=== PATIENT | male | born 1955 | race Caucasian/White ===

== ENCOUNTER 2019-10-20 06:59 | Day surgery (SDC) | payer BC ==
[2019-10-19 12:48] VITALS: BMI 23.0
[2019-10-20] MEDS ORDERED: DEXAMETHASONE SOD PHOSPHATE/PF 10 MG/ML SDV ONE (07:49)
[2019-10-20] MEDS ORDERED: ROPIVACAINE HCL 0.5% 30ML VIAL ONE (07:49)
[2019-10-20] MEDS ORDERED: MIDAZOLAM HCL 2 MG/2 ML SINGLE DOSE VIAL ONE ×2 (08:41)
--- NOTE | 2019-10-20 09:35 | HP ---
Satellite H - Chief Complaint Chief Complaint: right shoulder pain - Past Medical History Allergies/Adverse Reactions: Allergies Allergy/AdvReac Type Severity Reaction Status Date / Time doxycycline Allergy Severe Vomiting Verified 03/28/15 20:07 - Current Medications Current Medications: Home Medications Medication Instructions Recorded Hydrocodone/Acetaminophen 1 each PO Q6H #30 tablet MDD 4 10/20/19 [Hydrocodone-Acetamin 5-325 mg] Satellite Physical Exam - Physical Examination Vital Signs: Vital Signs Period Temp Pulse Resp BP Sys/Reddy Pulse Ox Last 24 Hr 98.1 F-98.1 F 45-45 20-20 132-132/68-68 97 General Appearance: Well Nourished, Well Developed, Alert & Oriented x3 ENT: Clear Lung: Normal air movement Extremities: Other (right shoulder- + ttp, decr rom, + empty can, + neer, + orantes, nvi, MRI + rct) Neurological: Intact, Alert, Oriented Satellite Impression/Plan - Impression/Plan Impression: right shoulder rct Operative Procedure: right shoulder arthroscopy with ABBI MERA Date to be Performed: 10/20/19
[2019-10-20] MEDS ORDERED: oxyCODONE HCL 5 MG TABLET PO PRN (10:10)
[2019-10-20] MEDS ORDERED: ONDANSETRON 4 MG/2 ML VIAL IVPUSH PRN (10:10)
[2019-10-20] MEDS ORDERED: LACTATED RINGERS SOLUTION 1,000 ML IV SCH (10:15)
[2019-10-20] MEDS ORDERED: PROPOFOL 20 ML ONE ×3 (10:25→11:11)
[2019-10-20] MEDS ORDERED: ceFAZolin SODIUM 1 GM VIAL ONE (10:26)
[2019-10-20] MEDS ORDERED: LIDOCAINE HCL/PF 2% SDV 5ML VIAL ONE (10:26)
[2019-10-20] MEDS ORDERED: KETOROLAC TROMETHAMINE 30 MG/1 ML VIAL ONE (10:26)
[2019-10-20] MEDS ORDERED: DEXAMETHASONE SOD PHOSPHATE 4 MG/1 ML VIAL ONE (10:26)
[2019-10-20] MEDS ORDERED: ceFAZolin SODIUM 1 GM VIAL IVPB ONE (11:15)
--- NOTE | 2019-10-20 12:31 | OP ---
Operative Note - Note: Operative Date: 10/20/19 ([facility]) Pre-Operative Diagnosis: right shoulder rct, djd, impingement Operation: right shoulder arthroscopy with SAD, DCE Post-Operative Diagnosis: Same as Pre-op Surgeon: Wali Oneal Metropolitan Editor: Yinka Evangelista Anesthesiologist/CASE MANAGEMENT RN: Yuriy Santana Anesthesia: General, Local Specimens Removed: shavings Estimated Blood Loss (mls): 5
[2019-10-20 13:56] VITALS: TEMP 97.8
[2019-10-20 14:35] VITALS: BP 143/74; PULSE 68
--- NOTE | 2019-10-21 07:57 | OP ---
DATE OF OPERATION: 10/20/2019 PREOPERATIVE DIAGNOSES: Right shoulder impingement syndrome, glenohumeral joint osteoarthritis, acromioclavicular joint arthritis, and partial rotator cuff tear. POSTOPERATIVE DIAGNOSES: Right shoulder impingement syndrome, glenohumeral joint osteoarthritis, acromioclavicular joint arthritis, and partial rotator cuff tear, as well as adhesive capsulitis. PROCEDURE: Right shoulder arthroscopy, subacromial decompression, distal clavicle excision, manipulation under anesthesia, and partial synovectomy. SURGEON: Wali Oneal MD NON DESTRUCTIVE TESTING TECHNICIAN: ABIMBOLA Bailey ANESTHESIOLOGIST: Yuriy Santana CRNA ANESTHESIA: Right interscalene block with LMA anesthesia. DRAINS: None. COMPLICATIONS: None. SPECIMEN: Arthroscopic shavings. BLOOD GIVEN: None. FLUID REPLACEMENT: Plasma-Lyte 1000 mL. This patient is a 63-year-old male with a preoperative diagnosis of significant pain and dysfunction of his right shoulder, as well as impingement syndrome and glenohumeral osteoarthritis. After understanding the potential risks, complications, alternatives, and benefits of surgery versus nonsurgical treatment, the patient elected to undergo this procedure. He understands that he will not get complete relief of his symptoms and he will continue to have pain at least secondary to the glenohumeral osteoarthritis. The patient was brought to the operating room. Peripheral IV placed. IV sedation given. A right interscalene block was performed. LMA anesthesia was induced. He was placed into the beach chair position with ample padding throughout. I put the arm through all planes including forward flexion, abduction, internal and external rotation. I was able to feel some soft tissue stretching, especially in full forward flexion and abduction. The right upper extremity was prepped and draped in usual sterile fashion. The bony landmarks were marked out with a marking pen. A posterior portal was established. A diagnostic glenohumeral arthroscopy was performed. The patient had significant widespread grade 4 osteoarthritis of both the glenoid and humeral head. They both were bare, had no cartilage whatsoever. Photographs were taken. The labrum was very frayed and torn. The biceps tendon and the undersurface of the rotator cuff were also very frayed and torn. There was a tremendous amount of intraarticular synovitis, and therefore, an anterior portal was established. First with a number-15 scalpel blade, then a green cannula was introduced into the glenohumeral joint, then an ArthroCare wand used to do a partial synovectomy. Once this was done, I could see much better, and with this improved visualization, I could see that the biceps tendon had significant longitudinal and transverse tears. This was debrided first with the ArthroCare wand and then a straight shaver. The labrum was debrided. The undersurface of the rotator cuff was debrided. The patient had a significant undersurface rotator cuff tear. Additional debris was removed from the joint. Once the undersurface of the rotator cuff was debrided, the arm was put through a range of motion. It looked like the top surface was intact. The area was copiously irrigated and washed out. All excess saline removed. Next, our attention turned to the subacromial space. Lateral portal was established under direct visualization using a spinal needle, number 15 scalpel blade, and then, a green cannula was introduced into the joint. Patient had a tremendous amount of inflammatory bursitis and inflammation. An extensive soft tissue debridement was done with the ArthroCare wand and then a straight shaver. A significant bursectomy was performed in the subacromial and subdeltoid area. This revealed the top surface of the rotator cuff to be intact. I put the arm through a full range of motion. I did not see any continuation of the tear from the articular side to the bursal side. The area was debrided, cauterized, and would be left alone. The extensive soft tissue sharp should be excisional/bursectomy revealed a very large subacromial and very large distal clavicular bony spur. These both were taken down with a 5.5-mm oval emily, then fine-tuned in reverse, and then with a straight shaver. The area was copiously irrigated and washed out. All excess saline and debris removed. Photographs were taken of the subacromial decompression. The arm was put through a full range of motion under direct visualization, and I saw no points of impingement. The area was searched again for a full-thickness rotator cuff tear. I did not see any. The area was copiously irrigated and washed out and all instrumentation removed. The arthroscopy portals were closed with 3-0 nylon sutures, washed, dried, and covered with Aquacel dressing, put into a sling. Total operative time was about 1 hour. There were no complications during the case. The patient tolerated the procedure quite well and was brought to the ambulatory recovery room in stable condition. Aroldo [id number]
--- NOTE | 2019-10-21 16:43 | PATH ---
Surgical Pathology Report Patient Name: MARCELINO MEIER Med. Rec. #: [id number] /Age/Gender: 1955 (Age: 63) / M Account: [id number] Location: [facility] SURGICAL Taken: 10/20/2019 Received: 10/20/2019 Reported: 10/21/2019 Physicians: Wali Oneal M.D. Specimen(s) Received RIGHT SHOULDER SHAVINGS Clinical History Impingement syndrome of right shoulder Final Diagnosis RIGHT SHOULDER SHAVINGS: FRAGMENTS OF BONE, CARTILAGE, SKELETAL MUSCLE AND SYNOVIAL TISSUE WITH FOCAL DEGENERATIVE CHANGE. Electronically Signed Shaye Reddy M.D. Gross Description Received in formalin, labeled "right shoulder shavings," is a 6.0 x 5.0 x 0.4 cm. aggregate of ahn-yellow soft tissue fragments. A livestock sales representative portion is submitted in one cassette. /10/20/201910/20/2019
== END 2019-10-20 15:20 | disposition home or self-care (01) ==
LOC: JASU-SURG 06:59
PROVIDERS: ATTEND Orthopaedic Surgery
PROC: 0PB94ZZ Excision of Right Clavicle, Percutaneous Endoscopic Approach (ICD-10-PCS; 2019-10-20)
PROC: 0RNJ4ZZ Release Right Shoulder Joint, Percutaneous Endoscopic Approach (ICD-10-PCS; principal; 2019-10-20 09:00)
DX: M75.41 Impingement syndrome of right shoulder (principal); M19.011 Primary osteoarthritis, right shoulder; M75.01 Adhesive capsulitis of right shoulder; M75.101 Unspecified rotator cuff tear or rupture of right shoulder, not specified as traumatic
CPT/HCPCS: 94760

== ENCOUNTER 2021-12-19 04:22 | Day surgery (SDC) | payer BC ==
[2021-12-17 17:36] VITALS: BMI 24.2
[2021-12-19] MEDS ORDERED: LIDOCAINE HCL 1%, 10 MG/ML (20ML VIAL) ONE (07:16)
[2021-12-19] MEDS ORDERED: BUPIVACAINE HCL/PF 0.5% (5MG/ML) 10 ML VIAL ONE (07:16)
[2021-12-19] MEDS ORDERED: DEXAMETHASONE SOD PHOSPHATE 4 MG/1 ML VIAL ONE (07:20)
[2021-12-19] MEDS ORDERED: MIDAZOLAM HCL 2 MG/2 ML SINGLE DOSE VIAL ONE (07:20)
[2021-12-19] MEDS ORDERED: KETOROLAC TROMETHAMINE 30 MG/1 ML VIAL ONE (07:20)
[2021-12-19] MEDS ORDERED: LIDOCAINE HCL 2% 100 MG/5 ML DISP.SYRIN ONE (07:20)
[2021-12-19] MEDS ORDERED: ePHEDrine SULFATE 50 MG/1 ML AMPULE ONE (07:20)
[2021-12-19] MEDS ORDERED: ONDANSETRON 4 MG/2 ML VIAL ONE (07:20)
[2021-12-19] MEDS ORDERED: PROPOFOL 20 ML ONE ×2 (07:20→08:19)
[2021-12-19] MEDS ORDERED: PHENYLEPHRINE HCL 10 MG/1 ML SINGLE DOSE VIAL ONE (07:20)
[2021-12-19] MEDS ORDERED: ceFAZolin SODIUM 1 GM VIAL IVPB ONE (08:10)
[2021-12-19] MEDS ORDERED: ceFAZolin SODIUM 1 GM VIAL ONE ×2 (08:11)
[2021-12-19] MEDS ORDERED: BUPIVACAINE HCL/PF 0.5% (5 MG/ML) 30 ML VIAL IJ ONE ×2 (08:20)
[2021-12-19] MEDS ORDERED: LIDOCAINE HCL 1%, 10 MG/ML (50 mL VIAL) INF ONE ×2 (08:20)
[2021-12-19] MEDS ORDERED: HYDROmorphone HCl 2 MG/ML VIAL IVPUSH PRN (08:49)
[2021-12-19] MEDS ORDERED: LACTATED RINGERS SOLUTION 1,000 ML IV SCH (09:00)
[2021-12-19 10:39] VITALS: BP 116/74; PULSE 51; TEMP 97.7
== END 2021-12-19 11:00 | disposition home or self-care (01) ==
LOC: JASU-SURG 04:22
PROVIDERS: ATTEND Orthopaedic Surgery
PROC: 01N50ZZ Release Median Nerve, Open Approach (ICD-10-PCS; principal; 2021-12-19 08:00)
DX: G56.02 Carpal tunnel syndrome, left upper limb (principal); M65.9 Synovitis and tenosynovitis, unspecified
CPT/HCPCS: 88304-TC; 94760

== ENCOUNTER → 2022-02-19 | Day surgery (SDC) | payer BC ==
[~2022-02-19] MED LIST: SIMETHICONE 40 MG/0.6 ML BOTTLE ONE
[2022-02-19 12:21] VITALS: TEMP 97.5
[2022-02-19 13:14] VITALS: BP 127/71; PULSE 64
== END | disposition home or self-care (01) ==
LOC: JASU-ENDO 04:54
PROVIDERS: ATTEND Internal Medicine Gastroenterology
PROC: 0DBL8ZX Excision of Transverse Colon, Via Natural or Artificial Opening Endoscopic, Diagnostic (ICD-10-PCS; 2022-02-19)
PROC: 0DBF8ZX Excision of Right Large Intestine, Via Natural or Artificial Opening Endoscopic, Diagnostic (ICD-10-PCS; 2022-02-19)
PROC: 0DBP8ZX Excision of Rectum, Via Natural or Artificial Opening Endoscopic, Diagnostic (ICD-10-PCS; 2022-02-19)
PROC: 0DBH8ZX Excision of Cecum, Via Natural or Artificial Opening Endoscopic, Diagnostic (ICD-10-PCS; principal; 2022-02-19 10:30)
DX: K57.30 Diverticulosis of large intestine without perforation or abscess without bleeding (principal); K62.1 Rectal polyp; D12.0 Benign neoplasm of cecum; D12.3 Benign neoplasm of transverse colon; K64.8 Other hemorrhoids
CPT/HCPCS: 88305-TC

== ENCOUNTER 2022-04-10 16:45 | Emergency (ER) | payer BC ==
[2022-04-10] MEDS ORDERED: FLUORESCEIN NA 1 EA STRIP ONE (16:50)
[2022-04-10] MEDS ORDERED: TETRACAINE 0.5% OPHTH SOLN 2 ML BOTTLE ONE (16:50)
[2022-04-10] MEDS ORDERED: DIPHTH,PERTUSS(ACELL),TET 0.5 ML DISP.SYRIN IM ONE ×2 (17:07→17:15)
[2022-04-10 17:14] VITALS: BP 123/74; PULSE 60; RESP 20; TEMP 98; BMI 24.2
== END 2022-04-10 17:51 | disposition home or self-care (01) ==
LOC: FER 16:45
PROC: 3E0234Z Introduction of Serum, Toxoid and Vaccine into Muscle, Percutaneous Approach (ICD-10-PCS; principal; 2022-04-10)
DX: T15.91XA Foreign body on external eye, part unspecified, right eye, initial encounter (principal)
CPT/HCPCS: 90715; 99283-25

== ENCOUNTER 2022-05-23 04:22 | Day surgery (SDC) | payer BC ==
[2022-05-23 07:41] VITALS: BMI 24.8
[2022-05-23] MEDS ORDERED: SIMETHICONE 40 MG/0.6 ML BOTTLE ONE (08:48)
[2022-05-23 08:57] VITALS: TEMP 98
[2022-05-23 08:59] VITALS: PULSE 53
[2022-05-23 10:02] VITALS: BP 102/48; RESP 17
== END 2022-05-23 09:45 | disposition home or self-care (01) ==
LOC: JASU-ENDO 04:22
PROVIDERS: ATTEND Internal Medicine Gastroenterology
PROC: 0DBL8ZX Excision of Transverse Colon, Via Natural or Artificial Opening Endoscopic, Diagnostic (ICD-10-PCS; 2022-05-23)
PROC: 0DBN8ZX Excision of Sigmoid Colon, Via Natural or Artificial Opening Endoscopic, Diagnostic (ICD-10-PCS; principal; 2022-05-23 08:30)
DX: D12.5 Benign neoplasm of sigmoid colon (principal); D12.3 Benign neoplasm of transverse colon; K64.8 Other hemorrhoids; K57.30 Diverticulosis of large intestine without perforation or abscess without bleeding; R19.5 Other fecal abnormalities; Z83.71 Family history of colonic polyps; Z86.010 Personal history of colon polyps
CPT/HCPCS: 88305-TC

== ENCOUNTER 2024-06-22 04:26 | Day surgery (SDC) | payer OTHER ==
[2024-06-15 13:07] VITALS: BMI 22.6
[2024-06-22 08:50] VITALS: RESP 16; TEMP 97.5
[2024-06-22 08:56] VITALS: BP 136/82; PULSE 72
== END 2024-06-22 08:53 | disposition home or self-care (01) ==
LOC: JASU-ENDO 04:26
PROVIDERS: ATTEND Internal Medicine Gastroenterology
PROC: 0DJD8ZZ Inspection of Lower Intestinal Tract, Via Natural or Artificial Opening Endoscopic (ICD-10-PCS; principal; 2024-06-22 08:00)
DX: Z12.11 Encounter for screening for malignant neoplasm of colon (principal); K57.20 Diverticulitis of large intestine with perforation and abscess without bleeding; K64.8 Other hemorrhoids; N40.0 Benign prostatic hyperplasia without lower urinary tract symptoms; Z86.0100 Personal history of colon polyps, unspecified